=== PATIENT | female | born 1955 | race American Indian/Alaskan Native ===

== ENCOUNTER 2017-10-22 08:31 | Observation (INO) | payer MEDICAID ==
[2017-10-22 09:45] LABS: Basophils # (Auto) 0.1 K/mm3 (0.0-0.1); Eosinophils # (Auto) 0.1 K/mm3 (0.0-0.4); Hematocrit 34.4 % (30.3-42.9); Hemoglobin 10.6 gm/dl (10.1-14.3); Lymphocytes # (Auto) 0.7 K/mm3 (1.2-5.4); Lymphocytes % (Auto) 12.1 % (13.4-35.0); Mean Corpuscular HGB Conc 31 % (30-34); Mean Corpuscular Hemoglobin 27 pg (28-32); Mean Corpuscular Volume 88 fl (79-97); Monocytes # (Auto) 0.4 K/mm3 (0.0-0.8); Monocytes % (Auto) 6.1 % (0.0-7.3); Platelet Count 140 K/mm3 (140-440); Red Blood Count 3.92 M/mm3 (3.65-5.03); Red Cell Distribution Width 18.3 % (13.2-15.2)
--- NOTE | 2017-10-22 09:51 | Emergency Department Report ---
HPI - General Chief Complaint: Hypoglycemia Time Seen by Provider: 10/22/17 09:28 - HPI HPI: Room 18 The patient is a 70-year-old female presenting with a chief complaint of altered mental status/hypoglycemia. Per family the patient was initially unresponsive this morning as family was unable to awaken her. EMS was called when the patient was awake and she could not answer questions appropriately. EMS states the patient was found to be hypoglycemic with an Accu-Chek of 40. EMS administered one amp of D50 and the patient improved. The patient states she takes insulin as well as pills to control her diabetes. The patient states she was recently diagnosed with renal failure and placed on dialysis. The patient states she also was recently diagnosed with pneumonia and is currently on antibiotics but cannot recall the name. 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"s) Hx Diabetes: Yes Hx Renal Disease: Yes Additional medical history: on dialysis - Surgical History Additional Surgical History: Hernia - Family History Family history: no significant - Social History Smoking Status: Never Smoker Substance Use Type: None - Medications Home Medications: Home Medications Medication Instructions Recorded Confirmed Last Taken Type Docusate Sodium 10/22/17 Unknown History Furosemide 10/22/17 Unknown History Gabapentin 10/22/17 Unknown History Humalog Michael Kwikpen 10/22/17 Unknown History ED Review of Systems ROS: Stated complaint: LOW BLOOD SUGAR Other details as noted in HPI Eyes: denies: eye pain ENT: denies: throat pain Respiratory: other (pneumonia) Cardiovascular: denies: chest pain Endocrine: other (hypoglycemia) Gastrointestinal: denies: abdominal pain Genitourinary: denies: dysuria Musculoskeletal: denies: back pain Neurological: confusion Physical Exam - Physical Exam Vital Signs: Vital Signs 10/22/17 10/22/17 08:45 09:02 Pulse Rate 58 L Respiratory 18 Rate Blood Pressure 150/65 O2 Sat by Pulse 92 Oximetry Physical Exam: GENERAL: The patient is well-developed well-nourished female lying on stretcher not appearing to be in acute distress. [] HEENT: Normocephalic. Atraumatic. Extraocular motions are intact. Patient has moist mucous membranes. NECK: Supple. Trachea midline CHEST/LUNGS: Decreased breath sounds left lung. There is no respiratory distress noted. HEART/CARDIOVASCULAR: Regular. There is no tachycardia. There is no gallop rub or murmur. ABDOMEN: Abdomen is soft, nontender. Patient has normal bowel sounds. There is no abdominal distention. SKIN: There is no rash. There is no edema. There is no diaphoresis. NEURO: The patient is awake, alert, and oriented. The patient is cooperative. The patient has normal speech MUSCULOSKELETAL: There is no evidence of acute injury. ED Course Vital Signs 10/22/17 10/22/17 08:45 09:02 Pulse Rate 58 L Respiratory 18 Rate Blood Pressure 150/65 O2 Sat by Pulse 92 Oximetry ED Medical Decision Making - Lab Data Result diagrams: 10/22/17 09:22 10/22/17 09:22 Laboratory Tests 10/22/17 10/22/17 10/22/17 09:22 09:22 09:40 WBC 5.8 RBC 3.92 Hgb 10.6 Hct 34.4 MCV 88 MCH 27 L MCHC 31 RDW 18.3 H Plt Count 140 Lymph % (Auto) 12.1 L [place] % (Auto) 6.1 Eos % (Auto) 1.0 Baso % (Auto) 2.0 H Lymph # 0.7 L [place] # 0.4 Eos # 0.1 Baso # 0.1 Seg Neutrophils % 78.8 H Seg Neutrophils # 4.5 Sodium 139 Potassium 3.7 Chloride 100.7 Carbon Dioxide 25 Anion Gap 17 BUN 25 H Creatinine 2.6 H Estimated GFR 22 BUN/Creatinine Ratio 10 Glucose 108 H POC Glucose 107 H Calcium 10.1 - Radiology Data Radiology results: image reviewed (chest x-ray) interpreted by me: Chest x-ray-left lower lobe consolidation. Possible left pleural effusion - Differential Diagnosis hypoglycemia, pneumonia Critical care attestation.: If time is entered above; I have spent that time in minutes in the direct care of this critically ill patient, excluding procedure time. ED Disposition Clinical Impression: Hypoglycemia, Pneumonia Disposition: OP ADMIT IP TO THIS HOSP Is pt being admited?: Yes Does the pt Need Aspirin: Yes Condition: Fair Instructions: Bacterial Pneumonia (ED) Referrals: PRIMARY CARE, [Primary Care Provider] - 3-5 Days Time of Disposition: 10:22 (hospitalist paged)
[2017-10-22 09:53] LABS: Calcium 10.1 mg/dL (8.4-10.2)
--- NOTE | 2017-10-22 10:05 | XRay Report ---
PORTABLE CHEST INDICATION: Congestion. COMPARISON: None similar at this institution. FINDINGS: Portable, frontal chest radiograph demonstrates extensive left mid to lower lung hazy opacity/infiltrate, most dense towards the base with obscured left hemidiaphragm, representing any combination of atelectasis/consolidation/pleural fluid. Top normal heart size with silhouette partly obscured. Prominent right hilum with perihilar bronchovascular prominence. Mild atelectasis/infiltrate at the right lung base also noted. Right-sided dual-lumen catheter tip about the cavoatrial junction. Aortic knob calcifications. EKG leads. Intact bones. CONCLUSION: Left more than right pulmonary infiltrates/pneumonia, possibly congestive and/or infection. Please also correlate clinically and with prior relevant imaging, if available. Thank you for the opportunity to participate in this patient's care.
--- NOTE | 2017-10-22 10:57 | History and Physical Report ---
History of Present Illness History of present illness: The patient is a 70-year-old female presenting with a chief complaint of altered mental status/hypoglycemia. Her family says she was less responsive and difficult to wake this am. EMS was called and glc was low as 40. EMS gave D50w and she improved. She takes insulins and PO hypoglycemia. She recetnly had PNA and is still on abx at home, doesn't know the name or dose. Denies CP, sob or chills, no cough today - Past Medical History Hx CVA: Yes (90"s), Hx Diabetes: Yes, ESRD recently started on HD, - Surgical History Additional Surgical History: Hernia, AVF - Family History Family history: no significant - Social History denies tobacco, etoh and illicit drugs Medications and Allergies Allergies Allergy/AdvReac Type Severity Reaction Status Date / Time No Known Allergies Allergy Unverified 10/22/17 08:58 Home Medications Medication Instructions Recorded Confirmed Last Taken Type Docusate Sodium 100 mg 10/22/17 Unknown History Furosemide 20 mg 10/22/17 Unknown History Gabapentin 300 mg 10/22/17 Unknown History Humalog Michael Kwikpen 10/22/17 Unknown History Januvia 50 mg 10/22/17 Unknown History Levemir Flextouch 100 units 10/22/17 Unknown History Losartan 50 mg 10/22/17 Unknown History Metoprolol 200 mg 10/22/17 Unknown History Mycophenolate 500 mg PO 10/22/17 Unknown History Omeprazole 40 mg 10/22/17 Unknown History hydrALAZINE 25 mg 10/22/17 Unknown History Review of Systems All systems: negative Constitutional: lethargy (only this am) Ears, nose, mouth and throat: no deferred Breasts: no deferred Cardiovascular: no chest pain Respiratory: no cough Gastrointestinal: no nausea Genitourinary Female: no dyspareunia Menstruation: postmenopausal Rectal: no pain Musculoskeletal: no neck stiffness Integumentary: no deferred Neurological: other (ams x this am, now resolved), no head injury Psychiatric: no anxiety Endocrine: no cold intolerance Hematologic/Lymphatic: no easy bruising Allergic/Immunologic: no urticaria Exam - Constitutional Vitals: Temp Pulse Resp BP Pulse Ox 58 L 18 150/65 92 10/22/17 08:45 10/22/17 09:02 10/22/17 08:45 10/22/17 09:02 General appearance: Present: no acute distress, well-nourished - EENT Eyes: Present: PERRL ENT: hearing intact, clear oral mucosa - Neck Neck: Present: supple, normal ROM - Respiratory Respiratory effort: normal Respiratory: bilateral: CTA - Cardiovascular Heart Sounds: Present: S1 & S2. Absent: rub, click - Extremities Extremities: pulses symmetrical, No edema Peripheral Pulses: within normal limits - Abdominal General gastrointestinal: Present: soft, non-tender, non-distended, normal bowel sounds Female genitourinary: Present: normal - Integumentary Integumentary: Present: clear, warm, dry - Musculoskeletal Musculoskeletal: gait normal, strength equal bilaterally - Psychiatric Psychiatric: appropriate mood/affect, intact judgment & insight - Neurologic Neurologic: CNII-XII intact, moves all extremities Results - Labs CBC & Chem 7: 10/22/17 09:22 10/22/17 09:22 Labs: Laboratory Last Values WBC 5.8 K/mm3 (4.5-11.0) 10/22/17 09:22 RBC 3.92 M/mm3 (3.65-5.03) 10/22/17 09:22 Hgb 10.6 gm/dl (10.1-14.3) 10/22/17 09:22 Hct 34.4 % (30.3-42.9) 10/22/17 09:22 MCV 88 fl (79-97) 10/22/17 09:22 MCH 27 pg (28-32) L 10/22/17 09:22 MCHC 31 % (30-34) 10/22/17 09:22 RDW 18.3 % (13.2-15.2) H 10/22/17 09:22 Plt Count 140 K/mm3 (140-440) 10/22/17 09:22 Lymph % (Auto) 12.1 % (13.4-35.0) L 10/22/17 09:22 [place] % (Auto) 6.1 % (0.0-7.3) 10/22/17 09:22 Eos % (Auto) 1.0 % (0.0-4.3) 10/22/17 09:22 Baso % (Auto) 2.0 % (0.0-1.8) H 10/22/17 09:22 Lymph # 0.7 K/mm3 (1.2-5.4) L 10/22/17 09:22 [place] # 0.4 K/mm3 (0.0-0.8) 10/22/17 09:22 Eos # 0.1 K/mm3 (0.0-0.4) 10/22/17 09:22 Baso # 0.1 K/mm3 (0.0-0.1) 10/22/17 09:22 Seg Neutrophils % 78.8 % (40.0-70.0) H 10/22/17 09:22 Seg Neutrophils # 4.5 K/mm3 (1.8-7.7) 10/22/17 09:22 Sodium 139 mmol/L (137-145) 10/22/17 09:22 Potassium 3.7 mmol/L (3.6-5.0) 10/22/17 09:22 Chloride 100.7 mmol/L (98-107) 10/22/17 09:22 Carbon Dioxide 25 mmol/L (22-30) 10/22/17 09:22 Anion Gap 17 mmol/L 10/22/17 09:22 BUN 25 mg/dL (7-17) H 10/22/17 09:22 Creatinine 2.6 mg/dL (0.7-1.2) H 10/22/17 09:22 Estimated GFR 22 ml/min 10/22/17 09:22 BUN/Creatinine Ratio 10 % 10/22/17 09:22 Glucose 108 mg/dL (65-100) H 10/22/17 09:22 POC Glucose 107 (70-105) H 10/22/17 09:40 Calcium 10.1 mg/dL (8.4-10.2) 10/22/17 09:22 - Imaging and Cardiology Chest x-ray: image reviewed (infiltrate noted) Assessment and Plan Assessment and plan: 70F with esrd who pw hypoglycemia and ams metabolic encephalopathy -due to low glc, improving Hypoglycemia -hold insulins and oral meds, and give ssi PNA -levaquin, renal dose ESRD on HD consult renal htn, resume home meds dvt ppx heparin
[2017-10-22] MEDS ORDERED: ZOFRAN IV PRN (11:09)
[2017-10-22] MEDS ORDERED: SODIUM CHLORIDE FLUSH SYRINGE 10 ML IV PRN (11:09)
[2017-10-22] MEDS ORDERED: TYLENOL PO PRN (11:09)
[2017-10-22] MEDS ORDERED: D50W (25GM) Syringe IV PRN (11:09)
[2017-10-22] MEDS ORDERED: LEVAQUIN PO SCH (12:00)
[2017-10-22] MEDS: LASIX PO SCH (12:28)
[2017-10-22] MEDS: COLACE PO SCH (12:28)
[2017-10-22] MEDS: CELLCEPT PO SCH (12:28)
[2017-10-22] MEDS: COZAAR PO SCH (12:28)
[2017-10-22] MEDS ORDERED: NON-FORMULARY (Hydralazine 25 MG) PO SCH (14:00)
--- NOTE | 2017-10-22 15:00 | Consultation ---
History of Present Illness - Reason for Consult Consult date: 10/22/17 end stage renal disease Requesting physician: NAMRATA WHITE - History of Present Illness 70-year-old lady with history of diabetes mellitus, hypertension, End-stage renal disease who was just discharged from [facility] where she presented with pneumonia and found to be in RENAL FAILURE. PATIENT WAS STARTED ON DIALYSIS THEN. SHE WAS FOLLOWING UP WITH A RAMP ATTENDANT AT [facility] BEFORE THIS. SHE DOES NOT RECALL THE NAME OF HER PRIMARY RAMP ATTENDANT. PATIENT WENT HOME 2 DAYS PRIOR TO PRESENTATION. SHE WAS BROUGHT TO THE HOSPITAL DUE TO ALTERED MENTAL STATUS. SHE WAS FOUND UNRESPONSIVE AND BECAME COMBATIVE THEREAFTER. SHE RECALLS TAKING HUMALOG, LEVEMIR AND HER PILLS the NIGHT BEFORE. Blood SUGAR WAS CHECKED BY EMS AND WAS 40 AND SHE WAS TREATED AND BROUGHT TO THE HOSPITAL FOR FURTHER MANAGEMENT. PATIENT FEELS MUCH BETTER NOW THOUGH SHE ADMITS TO STILL COUGHING PRODUCTIVE OF YELLOW SPUTUM WITH NO HEMOPTYSIS OR WHEEZING. SHE STILL HAS SOME CHEST PAIN ON COUGHING OR DEEP BREATHING WITH SHORTNESS OF BREATH. 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 denies: smoking, alcohol abuse, prescription drug abuse, IV drug use Family history: stroke (father of a stroke in his 60s), other (what I of lung disease in her 50s) Medications and Allergies Allergies Allergy/AdvReac Type Severity Reaction Status Date / Time No Known Allergies Allergy Unverified 10/22/17 08:58 Home Medications Medication Instructions Recorded Confirmed Last Taken Type Docusate Sodium 100 mg 10/22/17 Unknown History Furosemide 20 mg 10/22/17 Unknown History Gabapentin 300 mg 10/22/17 Unknown History Humalog Michael Kwikpen 10/22/17 Unknown History Januvia 50 mg 10/22/17 Unknown History Levemir Flextouch 100 units 10/22/17 Unknown History Losartan 50 mg 10/22/17 Unknown History Metoprolol 200 mg 10/22/17 Unknown History Mycophenolate 500 mg PO 10/22/17 Unknown History Omeprazole 40 mg 10/22/17 Unknown History hydrALAZINE 25 mg 10/22/17 Unknown History Active Meds: Active Medications Acetaminophen (Tylenol) 650 mg PO Q4H PRN PRN Reason: Pain MILD(1-3)/Fever >100.5/[place] Dextrose (D50w (25gm) Syringe) 50 ml IV PRN PRN PRN Reason: Hypoglycemia Docusate Sodium (Colace) 100 mg PO DAILY [facility] Last Admin: 10/22/17 12:28 Dose: 100 mg Furosemide (Lasix) 20 mg PO QAM [facility] Last Admin: 10/22/17 12:28 Dose: 20 mg Gabapentin (Neurontin) 300 mg PO QHS [facility] Heparin Sodium (Porcine) (Heparin) 5,000 unit SUB-Q Q8HR [facility] Hydralazine HCl (Apresoline) 25 mg PO TID [facility] Insulin Human Lispro (Humalog) 0 unit SUB-Q ACHS [facility]; Protocol Levofloxacin (Levaquin) 750 mg PO Q48H [facility] Last Admin: 10/22/17 12:29 Dose: 750 mg Losartan Potassium (Cozaar) 50 mg PO QDAY [facility] Last Admin: 10/22/17 12:28 Dose: 50 mg Metoprolol Tartrate (Lopressor) 50 mg PO BID [facility] Mycophenolate Mofetil (Cellcept) 500 mg PO DAILY [facility] Last Admin: 10/22/17 12:28 Dose: 500 mg Ondansetron HCl (Zofran) 4 mg IV Q8H PRN PRN Reason: Nausea And Vomiting Pantoprazole Sodium (Protonix) 40 mg PO DAILY [facility] Sodium Chloride (Sodium Chloride Flush Syringe 10 Ml) 10 ml IV BID [facility] Sodium Chloride (Sodium Chloride Flush Syringe 10 Ml) 10 ml IV PRN PRN PRN Reason: LINE FLUSH Review of Systems All systems: negative (Constitutional: Admits to fever and chills. No anorexia or weight loss. HEENT: No sore throat or sinus drainage no hearing or vision impairment . Cardiovascular: Admits to chest pain and, shortness of breath. No palpitations, lower extremity swelling or dizziness. Respiratory: Admits to cough productive of clear and yellowish sputum. No hemoptysis or wheezing. Gastrointestinal: No nausea, vomiting, but admits to diarrhea. No abdominal pain, hematemesis or melena. Genitourinary: No frequency urgency dysuria or hematuria. hematologic: No abnormal bleeding or bruising. Integumentary: no pruritus or rash. Neurological: Admits to dizziness and headache no focal weakness or numbness, no syncope or seizures. Musculoskeletal: No joint pains no stiffness. Psychiatry: no anxiety or depression) Exam - Vital Signs Vital signs: Vital Signs Pulse BP 58 L 150/65 10/22/17 08:45 10/22/17 08:45 - Physical Exam Narrative exam: Elderly -Mexican female lying in bed in no acute distress HEENT: NCAT, pink oral mucous membrane Neck: Supple, no venous distention, right IJ permacath CVS: S1S2 RRR with no murmur, rub or gallop Chest: Clear to auscultation Abdomen: Protuberant, soft, nontender, no organomegaly, bowel sounds are present Extremities: mild edema Genitourinary deferred Skin warm and dry with no rash Neuro: Awake, alert no focal deficits Results - Lab Results 10/22/17 09:22 10/22/17 09:22 Most recent lab results Calcium 10.1 mg/dL (8.4-10.2) 10/22/17 09:22 Assessment and Plan - Patient Problems (1) Metabolic encephalopathy Current Visit: Yes Status: Acute Plan to address problem: Mental status has improved with correction of hypoglycemia. Hypoglycemia probably secondary to decreased insulin clearance with worsening kidney function. Need to decrease the dose of hypoglycemic agents. (2) Pneumonia Current Visit: Yes Status: Acute Plan to address problem: Continue antibiotics, bronchodilators as needed (3) End stage renal disease Current Visit: Yes Status: Acute Plan to address problem: Resume hemodialysis in the morning. Request for records from the outside hospital (4) Hypertensive chronic kidney disease with stage 5 chronic kidney disease or end stage renal disease Current Visit: Yes Status: Acute Plan to address problem: Blood pressure is quite labile. Follow blood pressure on current medications (5) Anemia in chronic renal disease Current Visit: Yes Status: Acute Plan to address problem: Give Erythropoetin on dialysis (6) Hypoglycemia Current Visit: Yes Status: Acute Plan to address problem: Decrease hypoglycemic medications and follow blood sugar
[2017-10-22] MEDS ORDERED: HEPARIN IV PRN (15:10)
[2017-10-22] MEDS ORDERED: PROCRIT IV PRN (15:10)
[2017-10-22] MEDS ORDERED: NACL 0.9% 100 ML IV PRN (15:10)
[2017-10-22] MEDS: APRESOLINE PO SCH ×2 (15:37→22:22)
[2017-10-22] MEDS: HEPARIN SUB-Q SCH ×2 (15:39→22:15)
[2017-10-22] MEDS ORDERED: NEURONTIN PO SCH (22:00)
[2017-10-22] MEDS ORDERED: NON-FORMULARY (Metoprolol 50 MG) PO SCH (22:00)
[2017-10-22] MEDS ORDERED: NON-FORMULARY (Gabapentin 300 MG) PO SCH (22:00)
[2017-10-22] MEDS: LOPRESSOR PO SCH ×2 (22:08)
[2017-10-22] MEDS: HumaLOG SUB-Q SCH ×3 (22:23→22:26)
[2017-10-22] MEDS: PROTONIX PO SCH (22:23)
[2017-10-22] MEDS: SODIUM CHLORIDE FLUSH SYRINGE 10 ML IV SCH (22:26)
[2017-10-23] MEDS: HEPARIN SUB-Q SCH ×2 (05:55→14:30)
[2017-10-23 08:48] LABS: Bacteria,Urine 1+ /HPF (Negative); Bilirubin,Urine NEG (Negative); Blood,Urine SM (Negative); Color,Urine Yellow (Yellow); Hyaline Casts,Urine 3 /LPF; Mucus,Urine FEW /HPF; Urobilinogen,Urine < 2.0 mg/dL (<2.0)
[2017-10-23 08:56] LABS: Protein,Urine >500 mg/dL (Negative)
[2017-10-23] MEDS ORDERED: NON-FORMULARY (Mycophenolate 500 MG) PO SCH (10:00)
[2017-10-23] MEDS ORDERED: NON-FORMULARY (Omeprazole 40 MG) PO SCH (10:00)
[2017-10-23] MEDS ORDERED: NON-FORMULARY (Docusate Sodium 100 MG) PO SCH (10:00)
[2017-10-23] MEDS ORDERED: NON-FORMULARY (Losartan 50 MG) PO SCH (10:00)
[2017-10-23] MEDS ORDERED: NON-FORMULARY (Furosemide 20 MG) PO SCH (10:00)
[2017-10-23] MEDS ORDERED: NACL 0.9 (PRIMING MACHINE ONLY DIALYSIS) MC ONE (10:37)
[2017-10-23] MEDS: APRESOLINE PO SCH ×2 (10:52→14:28)
[2017-10-23] MEDS: HumaLOG SUB-Q SCH ×2 (10:52→11:30)
[2017-10-23 12:02] LABS: Calcium 9.1 mg/dL (8.4-10.2)
--- NOTE | 2017-10-23 13:06 | Discharge Summary ---
Providers - Providers Date of Admission: 10/22/17 12:26 Attending physician: NAMRATA WHITE MD 10/22/17 11:14 Consult to Physician [CONS] Routine Comment: Consulting Provider: PANTERA XIE Physician Instructions: Reason For Exam: esrd, need HD Primary care physician: [employer] Hospitalization Condition: Fair Exam - Constitutional Vitals: Temp Pulse Resp BP Pulse Ox 98.2 F 81 18 150/47 91 10/23/17 09:20 10/23/17 10:45 10/23/17 09:20 10/23/17 10:45 10/23/17 08:06 Plan Follow up with: PRIMARY CARE, [Primary Care Provider] - 3-5 Days Prescriptions: hydrALAZINE [Apresoline TAB] 25 mg PO TID #90 tablet Januvia 100 mg PO DAILY #30 MDD 5 mg Levemir Flextouch 5 units SQ DAILY #1 MDD 30 units Levofloxacin [Levaquin TAB] 500 mg PO Q48HR #2 tablet
[2017-10-23 13:29] VITALS: BP 163/92
[2017-10-23] MEDS: CELLCEPT PO SCH (14:27)
[2017-10-23] MEDS: COZAAR PO SCH (14:27)
[2017-10-23] MEDS: LASIX PO SCH (14:27)
[2017-10-23] MEDS: PROTONIX PO SCH (14:28)
[2017-10-23] MEDS: SODIUM CHLORIDE FLUSH SYRINGE 10 ML IV SCH (14:29)
[2017-10-23] MEDS: LOPRESSOR PO SCH (14:29)
[2017-10-23] MEDS: COLACE PO SCH (14:29)
--- NOTE | 2017-10-23 19:19 | Progress Note ---
Assessment and Plan - Patient Problems (1) Metabolic encephalopathy Status: Acute Plan to address problem: Mental status has improved with correction of hypoglycemia. Hypoglycemia probably secondary to decreased insulin clearance with worsening kidney function. Need to decrease the dose of hypoglycemic agents. (2) Pneumonia Status: Acute Plan to address problem: Continue antibiotics, bronchodilators as needed (3) End stage renal disease Status: Acute Plan to address problem: Complete hemodialysis here today and then continue on a Monday and Fridays at the outpatient Dialysis clinic on discharge (4) Hypertensive chronic kidney disease with stage 5 chronic kidney disease or end stage renal disease Status: Acute Plan to address problem: Blood pressure is quite labile. Follow blood pressure on current medications (5) Anemia in chronic renal disease Status: Acute Plan to address problem: Give Erythropoetin on dialysis (6) Hypoglycemia Status: Acute Plan to address problem: Decrease hypoglycemic medications and follow blood sugar per Hospitalist Subjective Date of service: 10/23/17 Principal diagnosis: end-stage renal disease Interval history: Patient seen lying in bed on dialysis. she had no complaints. Tolerating treatment with no complications. Objective - Exam Narrative Exam: Elderly -Mosotho female lying in bed in no acute distress HEENT: NCAT, pink oral mucous membrane Neck: Supple, no venous distention, right IJ permacath CVS: S1S2 RRR with no murmur, rub or gallop Chest: Clear to auscultation Abdomen: Protuberant, soft, nontender, no organomegaly, bowel sounds are present Extremities: mild edema Genitourinary deferred Skin warm and dry with no rash Neuro: Awake, alert no focal deficits - Vital Signs Vital signs: Vital Signs - 12hr 10/23/17 10/23/17 10/23/17 08:06 09:20 09:30 Temperature 98.2 F 98.2 F Pulse Rate 85 84 85 Respiratory 20 18 Rate Blood Pressure 135/64 155/87 171/96 O2 Sat by Pulse 91 Oximetry 10/23/17 10/23/17 10/23/17 09:45 10:00 10:15 Temperature Pulse Rate 83 83 83 Respiratory Rate Blood Pressure 174/95 165/93 148/88 O2 Sat by Pulse Oximetry 10/23/17 10/23/17 10/23/17 10:30 10:45 11:00 Temperature Pulse Rate 81 81 80 Respiratory Rate Blood Pressure 164/88 150/47 148/82 O2 Sat by Pulse Oximetry 06/25/18 06/25/18 06/25/18 11:15 11:30 11:45 Temperature Pulse Rate 78 77 78 Respiratory Rate Blood Pressure 145/84 169/82 152/87 O2 Sat by Pulse Oximetry 10/23/17 10/23/17 10/23/17 12:00 12:20 12:30 Temperature 98.5 F Pulse Rate 77 77 81 Respiratory 18 Rate Blood Pressure 139/83 144/84 163/92 O2 Sat by Pulse Oximetry - Lab 10/22/17 09:22 10/23/17 11:31 Most recent lab results Calcium 9.1 mg/dL (8.4-10.2) 10/23/17 11:31
[2017-10-24] MEDS ORDERED: LEVAQUIN PO SCH (10:00)
[2017-10-25 20:20] LABS: Hepatitis A Antibody IgM Non-Reactive (NonReactive); Hepatitis B Core IgM Non-Reactive (NonReactive); Hepatitis B Surface Antigen Non-Reactive (Negative); Hepatitis C Virus Antibody Non-Reactive (NonReactive)
== END 2017-10-23 16:00 | disposition home or self-care (01) ==
LOC: ED 08:31 → EDBD 12:26 → 3A 12:26
PROVIDERS: ADMIT Internal Medicine; ATTEND Internal Medicine
DX: E11.649 Type 2 diabetes mellitus with hypoglycemia without coma (principal); E11.22 Type 2 diabetes mellitus with diabetic chronic kidney disease; I12.0 Hypertensive chronic kidney disease with stage 5 chronic kidney disease or end stage renal disease; N18.6 End stage renal disease; G93.41 Metabolic encephalopathy; J18.9 Pneumonia, unspecified organism; Z99.2 Dependence on renal dialysis
CPT/HCPCS: 36415; 71045; 80048; 80074; 81001; 82962; 83036; 85025; 87040; 87116; 93005; 93010; 96372; 96374; 99285; G0257; G0378; J0885; J1644; J2405; J7030; J1815; J7517

== ENCOUNTER 2018-07-03 07:34 | Day surgery (SDC) | payer MEDICARE ==
[~2018-07-03 07:34] MED LIST: ANCEF/STERILE WATER 2 GM/20 ML 2 GM/20 ML SYRINGE IV NR; NACL 0.9% 1000 ML 1,000 ML IV SCH
--- NOTE | 2018-07-03 08:33 | Anesthesia Day of Surgery ---
Anesthesia Day of Surgery - Day of Surgery Patient Examined: Yes Patient H&P Reviewed: Yes Patient is NPO: Yes Cardiac Clearance: No (Pt states had heart cath 2w ago and no blockages per pt)
[2018-07-03] MEDS ORDERED: ZOFRAN IV PRN (08:35)
[2018-07-03] MEDS ORDERED: SUBLIMAZE IV PRN (08:35)
--- NOTE | 2018-07-03 08:35 | Anesthesia Consultation ---
Anesthesia Consult and Med Hx Date of service: 07/03/18 - Airway Anesthetic Teeth Evaluation: Good ROM Head & Neck: Adequate Mental/Hyoid Distance: Adequate Mallampati Class: Class II Intubation Access Assessment: Good - Pre-Operative Health Status ASA Pre-Surgery Classification: ASA3 Proposed Anesthetic Plan: General - Cardiovascular System Hx Hypertension: Yes Hx Coronary Artery Disease: No (Neg heart cath 2w ago per pt) - Central Nervous System CVA: Yes ("Mild" In the 90s) - Endocrine Hx Renal Disease: Yes Hx End Stage Renal Disease: Yes (Last HD yesterday) Hx Non-Insulin Dependent Diabetes: Yes - Hematic Hx Anemia: Yes - Other Systems Hx Cancer: No
[2018-07-03] MEDS ORDERED: APRESOLINE PO NR (08:39)
[2018-07-03 08:53] LABS: Basophils # (Auto) 0.1 K/mm3 (0.0-0.1); Basophils % (Auto) 1.4 % (0.0-1.8); Eosinophils # (Auto) 0.1 K/mm3 (0.0-0.4); Eosinophils % (Auto) 1.6 % (0.0-4.3); Hematocrit 36.5 % (30.3-42.9); Lymphocytes # (Auto) 2.3 K/mm3 (1.2-5.4); Lymphocytes % (Auto) 42.3 % (13.4-35.0); Mean Corpuscular HGB Conc 33 % (30-34); Mean Corpuscular Volume 93 fl (79-97); Monocytes # (Auto) 0.4 K/mm3 (0.0-0.8); Monocytes % (Auto) 8.1 % (0.0-7.3); Platelet Count 179 K/mm3 (140-440); Red Blood Count 3.94 M/mm3 (3.65-5.03); Red Cell Distribution Width 19.2 % (13.2-15.2)
[2018-07-03] MEDS ORDERED: NEURONTIN PO NR (09:00)
[2018-07-03] MEDS ORDERED: NACL 0.9% 1000 ML 1,000 ML IV SCH (09:00)
[2018-07-03] MEDS ORDERED: TYLENOL PO NR (09:00)
[2018-07-03 09:22] LABS: Calcium 9.5 mg/dL (8.4-10.2)
[2018-07-03] MEDS ORDERED: PROTONIX PO SCH (09:30)
[2018-07-03] MEDS ORDERED: XYLOCAINE MPF 2% ONE (09:36)
[2018-07-03] MEDS ORDERED: DIPRIVAN 10 MG/ML IV ONE (09:37)
[2018-07-03] MEDS ORDERED: SUBLIMAZE ONE (09:37)
[2018-07-03] MEDS ORDERED: HEPARIN 10,000 UNITS/10 ML ONE (10:19)
[2018-07-03] MEDS ORDERED: MARCAINE-EPI 0.5%-1:200,000 INFILTRATI ONE ×2 (10:19→11:35)
[2018-07-03] MEDS ORDERED: NACL 0.9% 500 ML 500 ML ONE (10:19)
[2018-07-03] MEDS ORDERED: GELFOAM TP ONE ×2 (10:19→11:33)
[2018-07-03] MEDS ORDERED: NITROGLYCERIN SYRINGE 3 ML ONE (10:20)
[2018-07-03] MEDS ORDERED: THROMBIN (BOVINE) TP ONE ×2 (10:59→11:33)
[2018-07-03] MEDS ORDERED: HEPARIN 10,000 UNITS/10 ML IV ONE (11:34)
[2018-07-03] MEDS ORDERED: NACL 0.9% TP ONE (11:37)
[2018-07-03] MEDS ORDERED: NITROGLYCERIN SYRINGE UD ONE (11:39)
[2018-07-03] MEDS ORDERED: NACL 0.9% 500 ML IRRIGATION ONE (11:40)
[2018-07-03] MEDS ORDERED: ZOFRAN ONE ×2 (12:13→13:06)
--- NOTE | 2018-07-03 12:24 | Short Stay Summary ---
Short Stay Documentation Date of service: 07/03/18 - Allergies and Medications Current Medications: Allergies No Known Allergies Allergy (Unverified 10/22/17 08:58) Home Medications Medication Instructions Recorded Confirmed Last Taken Type Furosemide 20 mg PO DAILY MDD 20 mg 10/22/17 07/03/18 07/02/18 19:00 History Gabapentin 100 mg PO BID MDD 400 mg 10/22/17 07/03/18 07/02/18 19:00 History Losartan 50 mg PO DAILY MDD 50 mg 10/22/17 07/03/18 07/02/18 19:00 History Omeprazole 40 mg PO DAILY MDD 40 10/22/17 07/03/18 07/02/18 19:00 History Humalog Michael Kwikpen 0 units SQ TIDAC #5 pen MDD 20 10/23/17 07/03/18 07/02/18 19:00 Rx units Januvia 100 mg PO DAILY #30 MDD 5 mg 10/23/17 07/03/18 07/02/18 19:00 Rx Levemir Flextouch 5 units SQ DAILY #1 MDD 30 units 10/23/17 07/03/18 07/02/18 19:00 Rx RX: hydrALAZINE [Apresoline TAB] 25 mg PO TID #90 tablet 10/23/17 07/03/18 07/02/18 19:00 Rx Mycophenolate 500 mg PO DAILY 07/03/18 07/03/18 07/02/18 19:00 History Active Medications Fentanyl (Sublimaze) 50 mcg IV Q5MIN PRN PRN Reason: Pain , Severe (7-10) Stop: 07/03/18 16:00 Gabapentin (Neurontin) 300 mg PO PREOP NR Stop: 07/03/18 16:00 Last Admin: 07/03/18 09:36 Dose: 300 mg Documented by: Cefazolin Sodium (Ancef/Sterile Water 2 Gm/20 Ml) 2 gm in 20 mls @ 80 mls/hr IV PREOP NR; Protocol Stop: 07/03/18 20:00 Sodium Chloride (Nacl 0.9% 1000 Ml) 1,000 mls @ 42 mls/hr IV DIRECT [place] Last Admin: 07/03/18 09:34 Dose: 42 mls/hr Documented by: Ondansetron HCl (Zofran) 4 mg IV ONCE PRN PRN Reason: Nausea And Vomiting Stop: 07/03/18 13:00 - Brief post op/procedure progress note Date of procedure: 07/03/18 Pre-op diagnosis: ESRD Post-op diagnosis: same Procedure: LUE brachial artery to basilic vein fistula at the elbow Anesthesia: GETA, local Findings: good thrill and 2+ radial pulse at end of case Surgeon: COLTON REYNA Estimated blood loss: minimal Pathology: none Condition: stable - Hospital course Hospital course: benign Short Stay Discharge Plan Activity: advance as tolerated Diet: advance as tolerated Wound: per your surgeon's advice Follow up with: COLTON REYNA MD [Staff Physician] - 14 Days Prescriptions: HYDROcodone/APAP 5-325 [[place] 5/325] 1 each PO Q6HR PRN #20 tablet PRN Reason: Pain
[2018-07-03] MEDS ORDERED: NORMODYNE IV ONE (12:41)
[2018-07-03] MEDS ORDERED: APRESOLINE IV PRN (13:04)
[2018-07-03] MEDS ORDERED: NORCO 5/325 PO ONE (14:30)
[2018-07-03 14:49] VITALS: BP 157/72
--- NOTE | 2018-07-06 15:35 | Operative Report ---
Operative Report Operative Report: KAROLYN Brachial Basilic Fistula Date of procedure: 07/03/2018 Preoperative diagnosis: End-stage renal disease Postoperative diagnosis: Same Procedure: Left upper extremity basilic vein to brachial artery fistula creation at the elbow Surgeon: Samir Glass MD FSVS FACS Anesthesia: General with local supplementation Estimated blood loss: Less than 50 cc Operative indication: Patient has end-stage renal failure and requires long- term hemodialysis access. Operative procedure: The patient was placed on the table in supine position given appropriate anesthesia. The area over the left arm was prepped with a ChloraPrep solution and draped in the usual sterile fashion. Real-time ultrasound was used to identify the superficial veins of the upper extremity. The cephalic vein appeared to be too small in the forearm and upper arm for use. The basilic vein was of excellent caliber in the upper arm and clearly suitable for use as an arterial venous fistula. The location of the vein was marked on the skin using a skin marker. Local anesthesia was infiltrated over the antecubital fossa just inferior to the elbow. Dissection was carried out to identify the basilic vein. The brachial artery was identified in the deeper tissue. The artery was surrounded with Vesseloops proximally distally. The patient was given 2000 units of intravenous heparin. 3 minutes were allowed to pass. An arteriotomy was made in the brachial artery. The arteriotomy length was about 8 mm. The vein was freed up from the surrounding tissue and then divided at a branch point to create a patch. The vein was then anastomosed to the artery in an end-to-side fashion using a running 7-0 Prolene. Nitroglycerin had been used to infiltrate the artery and the vein to prevent spasm. A 2 Zohra catheter was then used to break any spasm around the Vesseloops. All vessels were flushed and vented to remove any air or debris. The anastomosis completed. Flow was started into the fistula the development of an immediate and excellent thrill over the body of the fistula. Meticulous hemostasis was obtained. The wound was infiltrated with half percent Marcaine with epinephrine. Closure was done with 3-0 Vicryl on the subcutaneous tissue. The skin was closed with 4-0 Monocryl. Sterile dressings were applied. The patient tolerated the procedure well. Sponge, needle, and instrument counts were reported as correct. She was taken from the operating room to the recovery room in stable condition with an easily palpable thrill in the arteriovenous fistula and an easily palpable left radial pulse.
== END 2018-07-03 14:40 | disposition home or self-care (01) ==
LOC: OR 07:34
PROVIDERS: ATTEND Surgery Vascular Surgery
DX: I12.0 Hypertensive chronic kidney disease with stage 5 chronic kidney disease or end stage renal disease (principal); E11.22 Type 2 diabetes mellitus with diabetic chronic kidney disease; N18.6 End stage renal disease; E11.649 Type 2 diabetes mellitus with hypoglycemia without coma; G93.41 Metabolic encephalopathy; I25.10 Atherosclerotic heart disease of native coronary artery without angina pectoris; D64.9 Anemia, unspecified; Z79.899 Other long term (current) drug therapy; Z86.73 Personal history of transient ischemic attack (TIA), and cerebral infarction without residual deficits; Z98.890 Other specified postprocedural states
CPT/HCPCS: 36415; 36821; 80048; 82962; 85025; A4649; C1757; J0360; J0690; J1644; J2405; J2704; J3010; J7030; J7040

== ENCOUNTER 2018-07-14 23:29 | Emergency (ER) | payer MEDICARE ==
[2018-07-15 00:38] LABS: Calcium 9.9 mg/dL (8.4-10.2)
[2018-07-15 00:42] LABS: Basophils # (Auto) 0.1 K/mm3 (0.0-0.1); Basophils % (Auto) 1.4 % (0.0-1.8); Eosinophils # (Auto) 0.1 K/mm3 (0.0-0.4); Eosinophils % (Auto) 1.1 % (0.0-4.3); Hematocrit 39.9 % (30.3-42.9); Hemoglobin 12.9 gm/dl (10.1-14.3); Lymphocytes # (Auto) 2.6 K/mm3 (1.2-5.4); Lymphocytes % (Auto) 46.5 % (13.4-35.0); Mean Corpuscular HGB Conc 32 % (30-34); Mean Corpuscular Volume 92 fl (79-97); Monocytes # (Auto) 0.4 K/mm3 (0.0-0.8); Monocytes % (Auto) 7.5 % (0.0-7.3); Platelet Count 227 K/mm3 (140-440); Red Blood Count 4.35 M/mm3 (3.65-5.03); Red Cell Distribution Width 17.2 % (13.2-15.2)
[2018-07-15 01:02] VITALS: BP 210/123
--- NOTE | 2018-07-15 02:07 | Emergency Department Report ---
ED ENT HPI - General Chief complaint: GI Bleed Stated complaint: EMESIS/BLOOD Time Seen by Provider: 07/15/18 00:40 Source: patient Mode of arrival: Wheelchair Limitations: No Limitations - History of Present Illness Initial comments: Chief complaint: "I woke up with a mouthful of blood." HPI: Mrs. Mckinney is a very pleasant 63-year-old female with history of end-stage renal disease on dialysis Monday who awakened with blood in her mouth. She spit up blood counts. After rinsing the bleeding stopped. She has had diffuse toothache with eating. Her teeth have been tender. She is unable to afford dental care. She denies any vomiting. Denies abdominal pain. She's had pain related to intra-abdominal hernia. She was recently evaluated by general surgeon this week. Surgery scheduled for next month. No other concerns. MD complaint: tooth pain, other (gum bleeding) -: Sudden, This evening Severity: mild Consistency: now resolved Improves with: other (rinsing) Context-Epistaxis: aspirin use Context- Dental: history of dental caries, poor dental care Associated Symptoms: toothache - Related Data Home Medications Medication Instructions Recorded Confirmed Last Taken Furosemide 20 mg PO DAILY MDD 20 mg 10/22/17 07/03/18 07/02/18 19:00 Gabapentin 100 mg PO BID MDD 400 mg 10/22/17 07/03/18 07/02/18 19:00 Losartan 50 mg PO DAILY MDD 50 mg 10/22/17 07/03/18 07/02/18 19:00 Omeprazole 40 mg PO DAILY MDD 40 10/22/17 07/03/18 07/02/18 19:00 Mycophenolate 500 mg PO DAILY 07/03/18 07/03/18 07/02/18 19:00 Previous Rx's Medication Instructions Recorded Last Taken Type Humalog Michael Kwikpen 0 units SQ TIDAC #5 pen MDD 20 10/23/17 07/02/18 19:00 Rx units Januvia 100 mg PO DAILY #30 MDD 5 mg 10/23/17 07/02/18 19:00 Rx Levemir Flextouch 5 units SQ DAILY #1 MDD 30 units 10/23/17 07/02/18 19:00 Rx hydrALAZINE [Apresoline TAB] 25 mg PO TID #90 tablet 10/23/17 07/02/18 19:00 Rx HYDROcodone/APAP 5-325 [Hyampom 1 each PO Q6HR PRN #20 tablet 07/03/18 Unknown Rx 5/325] Penicillin V Potassium 500 mg PO TID 7 Days #21 tablet 07/15/18 Unknown Rx Allergies Allergy/AdvReac Type Severity Reaction Status Date / Time No Known Allergies Allergy Unverified 10/22/17 08:58 ED Dental HPI - General Chief complaint: GI Bleed Stated complaint: EMESIS/BLOOD Time Seen by Provider: 07/15/18 00:40 Source: patient Mode of arrival: Wheelchair Limitations: No Limitations - Related Data Home Medications Medication Instructions Recorded Confirmed Last Taken Furosemide 20 mg PO DAILY MDD 20 mg 10/22/17 07/03/18 07/02/18 19:00 Gabapentin 100 mg PO BID MDD 400 mg 10/22/17 07/03/18 07/02/18 19:00 Losartan 50 mg PO DAILY MDD 50 mg 10/22/17 07/03/18 07/02/18 19:00 Omeprazole 40 mg PO DAILY MDD 40 10/22/17 07/03/18 07/02/18 19:00 Mycophenolate 500 mg PO DAILY 07/03/18 07/03/18 07/02/18 19:00 Previous Rx's Medication Instructions Recorded Last Taken Type Humalog Michael Kwikpen 0 units SQ TIDAC #5 pen MDD 20 10/23/17 07/02/18 19:00 Rx units Januvia 100 mg PO DAILY #30 MDD 5 mg 10/23/17 07/02/18 19:00 Rx Levemir Flextouch 5 units SQ DAILY #1 MDD 30 units 10/23/17 07/02/18 19:00 Rx hydrALAZINE [Apresoline TAB] 25 mg PO TID #90 tablet 10/23/17 07/02/18 19:00 Rx HYDROcodone/APAP 5-325 [Hyampom 1 each PO Q6HR PRN #20 tablet 07/03/18 Unknown Rx 5/325] Penicillin V Potassium 500 mg PO TID 7 Days #21 tablet 07/15/18 Unknown Rx Allergies Allergy/AdvReac Type Severity Reaction Status Date / Time No Known Allergies Allergy Unverified 10/22/17 08:58 ED Review of Systems ROS: Stated complaint: EMESIS/BLOOD Other details as noted in HPI Comment: All other systems reviewed and negative Constitutional: denies: fever, malaise Respiratory: denies: cough Gastrointestinal: abdominal pain. 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) Hx Diabetes: Yes Hx Renal Disease: Yes Additional medical history: on dialysis, ANEMIA - Surgical History Past Surgical History?: Yes Additional Surgical History: Hernia, Left arm AV fistula - Social History Smoking Status: Never Smoker Substance Use Type: None - Medications Home Medications: Home Medications Medication Instructions Recorded Confirmed Last Taken Type Furosemide 20 mg PO DAILY MDD 20 mg 10/22/17 07/03/18 07/02/18 19:00 History Gabapentin 100 mg PO BID MDD 400 mg 10/22/17 07/03/18 07/02/18 19:00 History Losartan 50 mg PO DAILY MDD 50 mg 10/22/17 07/03/18 07/02/18 19:00 History Omeprazole 40 mg PO DAILY MDD 40 10/22/17 07/03/18 07/02/18 19:00 History Humalog Michael Kwikpen 0 units SQ TIDAC #5 pen MDD 20 10/23/17 07/03/18 07/02/18 19:00 Rx units Januvia 100 mg PO DAILY #30 MDD 5 mg 10/23/17 07/03/18 07/02/18 19:00 Rx Levemir Flextouch 5 units SQ DAILY #1 MDD 30 units 10/23/17 07/03/18 07/02/18 19:00 Rx hydrALAZINE [Apresoline TAB] 25 mg PO TID #90 tablet 10/23/17 07/03/18 07/02/18 19:00 Rx HYDROcodone/APAP 5-325 [Hyampom 1 each PO Q6HR PRN #20 tablet 07/03/18 Unknown Rx 5/325] Mycophenolate 500 mg PO DAILY 07/03/18 07/03/18 07/02/18 19:00 History Penicillin V Potassium 500 mg PO TID 7 Days #21 tablet 07/15/18 Unknown Rx ED Physical Exam - General Limitations: No Limitations General appearance: alert, in no apparent distress - Head Head exam: Present: atraumatic, normocephalic - Eye Eye exam: Present: normal appearance - ENT ENT exam: Present: other (diffuse dental decay with tooth fracture at tooth #25 there is decay at the gum line with clotted blood) - Neck Neck exam: Present: normal inspection - Respiratory Respiratory exam: Present: normal lung sounds bilaterally. Absent: respiratory distress - Cardiovascular Cardiovascular Exam: Present: regular rate, normal rhythm. Absent: systolic murmur, diastolic murmur, rubs, gallop - GI/Abdominal GI/Abdominal exam: Present: soft, normal bowel sounds. Absent: distended, tenderness, guarding, rebound - Extremities Exam Extremities exam: Present: normal inspection - Back Exam Back exam: Present: normal inspection - Neurological Exam Neurological exam: Present: alert, oriented X3 - Psychiatric Psychiatric exam: Present: normal affect, normal mood - Skin Skin exam: Present: warm, dry, intact, normal color. Absent: rash ED Course Vital Signs 07/14/18 07/15/18 23:36 01:02 Temperature 97.9 F Pulse Rate 103 H 102 H Respiratory 18 15 Rate Blood Pressure 215/115 Blood Pressure 210/123 [Left] O2 Sat by Pulse 99 98 Oximetry ED Medical Decision Making - Lab Data Result diagrams: 07/15/18 00:03 07/15/18 00:03 - Medical Decision Making Ms. Spain presents with gum bleeding due to severe gingivitis and tooth decay prescribed penicillin. Referred to [facility] dental clinics. Recommended direct pressure with gauze if bleeding recurs. Currently there is a clot in place without active bleeding. I discharged her to hold aspirin therapy for the next 3 days. H&H within normal limits. Platelets are normal. Critical care attestation.: If time is entered above; I have spent that time in minutes in the direct care of this critically ill patient, excluding procedure time. ED Disposition Clinical Impression: Gums, bleeding, Dental caries Disposition: DC-01 TO HOME OR SELFCARE Is pt being admited?: No Does the pt Need Aspirin: No Condition: Stable Instructions: Gingivitis (ED) Prescriptions: Penicillin V Potassium 500 mg PO TID 7 Days #21 tablet Referrals: [facility] [Outside] - 3-5 Days
== END 2018-07-15 03:20 | disposition home or self-care (01) ==
LOC: ED 23:29
DX: K02.9 Dental caries, unspecified (principal); K06.8 Other specified disorders of gingiva and edentulous alveolar ridge; E11.22 Type 2 diabetes mellitus with diabetic chronic kidney disease; I13.11 Hypertensive heart and chronic kidney disease without heart failure, with stage 5 chronic kidney disease, or end stage renal disease; N18.6 End stage renal disease; Z99.2 Dependence on renal dialysis; Z86.73 Personal history of transient ischemic attack (TIA), and cerebral infarction without residual deficits; Z79.899 Other long term (current) drug therapy; Z86.2 Personal history of diseases of the blood and blood-forming organs and certain disorders involving the immune mechanism
CPT/HCPCS: 36415; 80048; 85025; 99283

== ENCOUNTER 2021-04-02 11:08 | Observation (INO) | payer MEDICARE ==
--- NOTE | 2021-04-02 12:39 | Emergency Department Report ---
HPI - General Chief Complaint: Dyspnea/Respdistress Time Seen by Provider: 04/02/21 12:35 - HPI HPI: 65-year-old -Mal[place] female presents to the emergency department with complaint of shortness of breath over the past 2 days. Patient is not compl etely O2 dependent, but has been using oxygen at home intermittently since getting bilateral pneumonia earlier this year and being seen at [facility]. However, over the past 2 days, since Monday, the patient has been having to use the oxygen 24 hours a day. She has increased shortness of breath with any exertion. The patient went to dialysis today but had her oxygen saturation dropped down into the 70s as they were transferring her between different supplemental oxygen. Once the oxygen was placed back on, at 3 L, her oxygen saturation continued to rise and the patient says that she feels improved "as long as I am on the oxygen." However, because of this transient hypoxia, the patient did not receive dialysis and was sent into the emergency department for further evaluation. She denies any chest pain, fever, lower extremity swelling, back pain. Her bottom man is Dr. Comer. The patient is vaccinated against COVID-19. She also has a history of hypertension and diabetes. ED Past Medical Hx 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) Hx Diabetes: Yes Hx Renal Disease: Yes Additional medical history: on dialysis, ANEMIA - Surgical History Additional Surgical History: Hernia, Left arm AV fistula - Social History Smoking Status: Never Smoker Substance Use Type: None - Medications Home Medications: Home Medications Medication Instructions Recorded Confirmed Last Taken Type Furosemide 20 mg PO DAILY MDD 20 mg 10/22/17 07/03/18 07/02/18 19:00 History Gabapentin 100 mg PO BID MDD 400 mg 10/22/17 07/03/18 07/02/18 19:00 History Losartan 50 mg PO DAILY MDD 50 mg 10/22/17 07/03/18 07/02/18 19:00 History Omeprazole 40 mg PO DAILY MDD 40 10/22/17 07/03/18 07/02/18 19:00 History Humalog Michael Kwikpen 0 units SQ TIDAC #5 pen MDD 20 10/23/17 07/03/18 07/02/18 19:00 Rx units Januvia 100 mg PO DAILY #30 MDD 5 mg 10/23/17 07/03/18 07/02/18 19:00 Rx Levemir Flextouch 5 units SQ DAILY #1 MDD 30 units 10/23/17 07/03/18 07/02/18 19:00 Rx hydrALAZINE [Apresoline TAB] 25 mg PO TID #90 tablet 10/23/17 07/03/18 07/02/18 19:00 Rx HYDROcodone/APAP 5-325 [Liberal 1 each PO Q6HR PRN #20 tablet 07/03/18 Unknown Rx 5-325 mg TAB] Mycophenolate 500 mg PO DAILY 07/03/18 07/03/18 07/02/18 19:00 History Penicillin V Potassium 500 mg PO TID 7 Days #21 tablet 07/15/18 Unknown Rx ED Review of Systems ROS: Stated complaint: Other details as noted in HPI Comment: All other systems reviewed and negative Constitutional: denies: chills, fever Eyes: denies: eye pain, vision change ENT: denies: ear pain, throat pain Respiratory: shortness of breath, SOB with exertion Cardiovascular: denies: chest pain, edema Gastrointestinal: denies: abdominal pain, vomiting Genitourinary: denies: dysuria, discharge Musculoskeletal: denies: back pain, arthralgia Skin: denies: rash, lesions Neurological: denies: headache, weakness Physical Exam - Physical Exam Vital Signs: Vital Signs 04/02/21 11:22 Temperature 98.5 F Pulse Rate 95 H Respiratory 18 Rate Blood Pressure 189/90 [Left] O2 Sat by Pulse 99 Oximetry Physical Exam: GENERAL: The patient is well-developed well-nourished. HENT: Normocephalic. Atraumatic. Patient has moist mucous membranes. EYES: Extraocular motions are intact. NECK: Supple. Trachea is midline. CHEST/LUNGS: Coarse breath sounds throughout the chest. No tachypnea accessory muscle use. HEART/CARDIOVASCULAR: Regular. There is no tachycardia. There is no murmur. ABDOMEN: Abdomen is soft, nontender. Patient has normal bowel sounds. SKIN: Skin is warm and dry. NEURO: The patient is awake, alert, and oriented. The patient is cooperative. The patient has no focal neurologic deficits. Normal speech. MUSCULOSKELETAL: There is no tenderness or deformity. There is no limitation range of motion. ED Course Vital Signs 12/03/21 11:22 Temperature 98.5 F Pulse Rate 95 H Respiratory 18 Rate Blood Pressure 189/90 [Left] O2 Sat by Pulse 99 Oximetry - Consultations Consultation #1: 04/02/21 14:[address] Browning, bottom man on for Dr. Comer, and he will provide orders for dialysis today and consult on the patient. ED Medical Decision Making - Lab Data Result diagrams: 04/02/21 12:44 04/02/21 12:44 Lab Results 04/02/21 04/02/21 Range/Units 12:44 12:44 WBC 5.4 (4.5-11.0) K/mm3 RBC 3.62 L (3.65-5.03) M/mm3 Hgb 10.7 (10.1-14.3) gm/dl Hct 34.5 (30.3-42.9) % MCV 95 (79-97) fl MCH 30 (28-32) pg MCHC 31 (30-34) % RDW 17.0 H (13.2-15.2) % Plt Count 208 (140-440) K/mm3 Lymph % (Auto) 15.7 (13.4-35.0) % [place] % (Auto) 6.0 (0.0-7.3) % Eos % (Auto) 4.1 (0.0-4.3) % Baso % (Auto) 1.3 (0.0-1.8) % Lymph # (Auto) 0.8 L (1.2-5.4) K/mm3 [place] # (Auto) 0.3 (0.0-0.8) K/mm3 Eos # (Auto) 0.2 (0.0-0.4) K/mm3 Baso # (Auto) 0.1 (0.0-0.1) K/mm3 Seg Neutrophils % 72.9 H (40.0-70.0) % Seg Neutrophils # 3.9 (1.8-7.7) K/mm3 Sodium 141 (137-145) mmol/L Potassium 4.6 (3.6-5.0) mmol/L Chloride 98.5 (98-107) mmol/L Carbon Dioxide 24 (22-30) mmol/L Anion Gap 23 mmol/L BUN 31 H (7-17) mg/dL Creatinine 7.9 H (0.6-1.2) mg/dL Estimated GFR 6 ml/min BUN/Creatinine Ratio 4 % Glucose 104 H (65-100) mg/dL Calcium 9.2 (8.4-10.2) mg/dL Total Bilirubin 0.40 (0.1-1.2) mg/dL AST 19 (5-40) units/L ALT 14 (7-56) units/L Alkaline Phosphatase 125 (35-129) units/L NT-Pro-B Natriuret Pep 79985 H (0-900) pg/mL Total Protein 7.5 (6.3-8.2) g/dL Albumin 3.9 (3.9-5) g/dL Albumin/Globulin Ratio 1.1 % - Radiology Data Radiology results: image reviewed interpreted by me: Chest x-ray shows pulmonary vascular congestion, bilateral interstitial edema, and some mild bilateral pleural effusions. No obvious pneumonia. No pneumothorax. No widened mediastinum. - Medical Decision Making This patient presents to the emergency department with a complaint of some shortness of breath and missing her dialysis. The patient had some transient hypoxia during a transfer or in between being able to use supplemental oxygen. However, the patient has had to use her home O2 [id number] over the past 2 days, when usually she only has to use it intermittently. In our emergency department the patient has a oxygen saturation in the high 90s on 3 L oxygen via nasal cannula. Chest x-ray does show volume overload. The patient's labs are only remarkable for renal insufficiency consistent with her end-stage renal disease. Nephrology was contacted and consulted and they will provide dialysis today. The patient will be admitted to the hospital for further evaluation and treatment and was accepted for admission by the hospitalist, Dr. Akhtar. Critical Care Time: No Critical care attestation.: If time is entered above; I have spent that time in minutes in the direct care of this critically ill patient, excluding procedure time. ED Disposition Clinical Impression: End-stage renal disease needing dialysis Volume overload Qualifiers: Hypervolemia type: unspecified Qualified Code(s): E87.70 - Fluid overload, unspecified Hypertension Qualifiers: Hypertension type: primary hypertension Qualified Code(s): I10 - Essential (primary) hypertension Disposition: 09 ADMITTED INPATIENT Is pt being admited?: Yes Condition: Fair Time of Disposition: 14:51
--- NOTE | 2021-04-02 13:30 | XRay Report ---
CHEST 2 VIEWS INDICATION / CLINICAL INFORMATION: Shortness of breath. COMPARISON: 10/22/2017 FINDINGS: SUPPORT DEVICES: None. HEART / MEDIASTINUM: There is moderate cardiomegaly. LUNGS / PLEURA: There is interstitial pulmonary edema and small bilateral effusions. ADDITIONAL FINDINGS: No significant additional findings. IMPRESSION: 1. Findings likely indicating CHF as above. Signer Name: Carlton Batista MD Signed: 04/02/2021 1:25 PM Workstation Name: [id number]
[2021-04-02 13:44] LABS: Basophils # (Auto) 0.1 K/mm3 (0.0-0.1); Basophils % (Auto) 1.3 % (0.0-1.8); Eosinophils # (Auto) 0.2 K/mm3 (0.0-0.4); Eosinophils % (Auto) 4.1 % (0.0-4.3); Hematocrit 34.5 % (30.3-42.9); Hemoglobin 10.7 gm/dl (10.1-14.3); Lymphocytes # (Auto) 0.8 K/mm3 (1.2-5.4); Lymphocytes % (Auto) 15.7 % (13.4-35.0); Mean Corpuscular HGB Conc 31 % (30-34); Mean Corpuscular Volume 95 fl (79-97); Monocytes # (Auto) 0.3 K/mm3 (0.0-0.8); Platelet Count 208 K/mm3 (140-440); Red Blood Count 3.62 M/mm3 (3.65-5.03)
[2021-04-02 14:03] LABS: Albumin 3.9 g/dL (3.9-5); Calcium 9.2 mg/dL (8.4-10.2)
[2021-04-02] MEDS ORDERED: SODIUM CHLORIDE 0.9% 100 ML IV PRN (15:00)
[2021-04-02 16:21] LABS: Hepatitis C Virus Antibody Non-Reactive (NonReactive)
[2021-04-02 16:29] LABS: Hepatitis B Surface Antigen Nonreactive (Negative)
--- NOTE | 2021-04-02 20:00 | History and Physical Report ---
History of Present Illness Date of examination: 04/02/21 Date of admission: 04/02/21 14:51 Chief complaint: Shortness of breath for 1 day History of present illness: 65-year-old -L[place] female presents to the emergency department with complaint of shortness of breath over the past 2 days. Patient is not completely O2 dependent, but has been using oxygen at home intermittently since getting bilateral pneumonia earlier this year and being seen at [facility]. However, over the past 2 days, since Monday, the patient has been having to use the oxygen 24 hours a day. She has increased shortness of breath with any exertion. The patient went to dialysis today but had her oxygen saturation dropped down into the 70s as they were transferring her between different supplemental oxygen. Once the oxygen was placed back on, at 3 L, her oxygen saturation continued to rise and the patient says that she feels improved "as long as I am on the oxygen." However, because of this transient hypoxia, the patient did not receive dialysis and was sent into the emergency department for further evaluation. She denies any chest pain, fever, lower extremity swelling, back pain. 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 Comer. The patient is vaccinated against COVID-19. She also has a history of hypertension and diabetes. 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) Hx Diabetes: Yes Hx Renal Disease: Yes Additional medical history: on dialysis, ANEMIA - Surgical History Additional Surgical History: Hernia, Left arm AV fistula - Social History Smoking Status: Never Smoker Substance Use Type: None - Medications Home Medications: Home Medications Medication Instructions Recorded Confirmed Last Taken Type Furosemide 20 mg PO DAILY MDD 20 mg 10/22/17 07/03/18 07/02/18 19:00 History Gabapentin 100 mg PO BID MDD 400 mg 10/22/17 07/03/18 07/02/18 19:00 History Losartan 50 mg PO DAILY MDD 50 mg 10/22/17 07/03/18 07/02/18 19:00 History Omeprazole 40 mg PO DAILY MDD 40 10/22/17 07/03/18 07/02/18 19:00 History Humalog Michael Kwikpen 0 units SQ TIDAC #5 pen MDD 20 10/23/17 07/03/18 07/02/18 19:00 Rx units Januvia 100 mg PO DAILY #30 MDD 5 mg 10/23/17 07/03/18 07/02/18 19:00 Rx Levemir Flextouch 5 units SQ DAILY #1 MDD 30 units 10/23/17 07/03/18 07/02/18 19:00 Rx hydrALAZINE [Apresoline TAB] 25 mg PO TID #90 tablet 10/23/17 07/03/18 07/02/18 19:00 Rx HYDROcodone/APAP 5-325 [[place] 1 each PO Q6HR PRN #20 tablet 07/03/18 Unknown Rx 5/325] Mycophenolate 500 mg PO DAILY 07/03/18 07/03/18 07/02/18 19:00 History Penicillin V Potassium 500 mg PO TID 7 Days #21 tablet 07/15/18 Unknown Rx Review of Systems ROS: Stated complaint: Other details as noted in HPI Comment: All other systems reviewed and negative Constitutional: denies: chills, fever Eyes: denies: eye pain, vision change ENT: denies: ear pain, throat pain Respiratory: shortness of breath, SOB with exertion Cardiovascular: denies: chest pain, edema Gastrointestinal: denies: abdominal pain, vomiting Genitourinary: denies: dysuria, discharge Musculoskeletal: denies: back pain, arthralgia Skin: denies: rash, lesions Neurological: denies: headache, weakness Medications and Allergies Allergies Allergy/AdvReac Type Severity Reaction Status Date / Time No Known Allergies Allergy Unverified 04/02/21 11:31 Home Medications Medication Instructions Recorded Confirmed Last Taken Type Furosemide 20 mg PO DAILY MDD 20 mg 10/22/17 07/03/18 07/02/18 19:00 History Gabapentin 100 mg PO BID MDD 400 mg 10/22/17 07/03/18 07/02/18 19:00 History Losartan 50 mg PO DAILY MDD 50 mg 10/22/17 07/03/18 07/02/18 19:00 History Omeprazole 40 mg PO DAILY MDD 40 10/22/17 07/03/18 07/02/18 19:00 History Humalog Michael Kwikpen 0 units SQ TIDAC #5 pen MDD 20 10/23/17 07/03/18 07/02/18 19:00 Rx units Januvia 100 mg PO DAILY #30 MDD 5 mg 10/23/17 07/03/18 07/02/18 19:00 Rx Levemir Flextouch 5 units SQ DAILY #1 MDD 30 units 10/23/17 07/03/18 07/02/18 19:00 Rx hydrALAZINE [Apresoline TAB] 25 mg PO TID #90 tablet 10/23/17 07/03/18 07/02/18 19:00 Rx HYDROcodone/APAP 5-325 [[place] 1 each PO Q6HR PRN #20 tablet 07/03/18 Unknown Rx 5-325 mg TAB] Mycophenolate 500 mg PO DAILY 07/03/18 07/03/18 07/02/18 19:00 History Penicillin V Potassium 500 mg PO TID 7 Days #21 tablet 07/15/18 Unknown Rx Active Meds: Active Medications Sodium Chloride (Nacl 0.9%) 100 mls @ 999 mls/hr IV VEENA PRN PRN Reason: Hypotension Exam - Constitutional Vitals: Temp Pulse Resp BP Pulse Ox 98.8 F 93 H 18 187/118 96 04/02/21 15:50 04/02/21 15:50 04/02/21 15:50 04/02/21 15:50 04/02/21 15:50 General appearance: Present: no acute distress, well-nourished - EENT Eyes: Present: PERRL ENT: hearing intact, clear oral mucosa - Neck Neck: Present: supple, normal ROM - Respiratory Respiratory effort: normal Respiratory: bilateral: CTA - Cardiovascular Heart rate: 78 Rhythm: regular Heart Sounds: Present: S1 & S2. Absent: rub, click - Extremities Extremities: no ischemia, pulses intact, pulses symmetrical, No edema Peripheral Pulses: within normal limits - Abdominal General gastrointestinal: Present: soft, non-tender, non-distended, normal bowel sounds Female genitourinary: Present: normal - Rectal Rectal Exam: deferred - Integumentary Integumentary: Present: clear, warm, dry - Musculoskeletal Musculoskeletal: gait normal, strength equal bilaterally - Psychiatric Psychiatric: appropriate mood/affect, intact judgment & insight - Neurologic Neurologic: CNII-XII intact, moves all extremities Results - Labs CBC & Chem 7: 04/02/21 12:44 04/02/21 12:44 Labs: Laboratory Last Values WBC 5.4 K/mm3 (4.5-11.0) 04/02/21 12:44 RBC 3.62 M/mm3 (3.65-5.03) L 04/02/21 12:44 Hgb 10.7 gm/dl (10.1-14.3) 04/02/21 12:44 Hct 34.5 % (30.3-42.9) 04/02/21 12:44 MCV 95 fl (79-97) 04/02/21 12:44 MCH 30 pg (28-32) 04/02/21 12:44 MCHC 31 % (30-34) 04/02/21 12:44 RDW 17.0 % (13.2-15.2) H 04/02/21 12:44 Plt Count 208 K/mm3 (140-440) 04/02/21 12:44 Lymph % (Auto) 15.7 % (13.4-35.0) 04/02/21 12:44 [place] % (Auto) 6.0 % (0.0-7.3) 04/02/21 12:44 Eos % (Auto) 4.1 % (0.0-4.3) 04/02/21 12:44 Baso % (Auto) 1.3 % (0.0-1.8) 04/02/21 12:44 Lymph # (Auto) 0.8 K/mm3 (1.2-5.4) L 04/02/21 12:44 [place] # (Auto) 0.3 K/mm3 (0.0-0.8) 04/02/21 12:44 Eos # (Auto) 0.2 K/mm3 (0.0-0.4) 04/02/21 12:44 Baso # (Auto) 0.1 K/mm3 (0.0-0.1) 04/02/21 12:44 Seg Neutrophils % 72.9 % (40.0-70.0) H 04/02/21 12:44 Seg Neutrophils # 3.9 K/mm3 (1.8-7.7) 04/02/21 12:44 Sodium 141 mmol/L (137-145) 04/02/21 12:44 Potassium 4.6 mmol/L (3.6-5.0) 04/02/21 12:44 Chloride 98.5 mmol/L (98-107) 04/02/21 12:44 Carbon Dioxide 24 mmol/L (22-30) 04/02/21 12:44 Anion Gap 23 mmol/L 04/02/21 12:44 BUN 31 mg/dL (7-17) H 04/02/21 12:44 Creatinine 7.9 mg/dL (0.6-1.2) H 04/02/21 12:44 Estimated GFR 6 ml/min 04/02/21 12:44 BUN/Creatinine Ratio 4 % 04/02/21 12:44 Glucose 104 mg/dL (65-100) H 04/02/21 12:44 Calcium 9.2 mg/dL (8.4-10.2) 04/02/21 12:44 Total Bilirubin 0.40 mg/dL (0.1-1.2) 04/02/21 12:44 AST 19 units/L (5-40) 04/02/21 12:44 ALT 14 units/L (7-56) 04/02/21 12:44 Alkaline Phosphatase 125 units/L (35-129) 04/02/21 12:44 NT-Pro-B Natriuret Pep 49544 pg/mL (0-900) H 04/02/21 12:44 Total Protein 7.5 g/dL (6.3-8.2) 04/02/21 12:44 Albumin 3.9 g/dL (3.9-5) 04/02/21 12:44 Albumin/Globulin Ratio 1.1 % 04/02/21 12:44 Hepatitis A IgM Ab Non-reactive (NonReactive) 04/02/21 15:19 Hep Bs Antigen Nonreactive (Negative) 04/02/21 15:19 Hep B Core IgM Ab Non-reactive (NonReactive) 04/02/21 15:19 Hepatitis C Antibody Non-reactive (NonReactive) 04/02/21 15:19 Assessment and Plan Advance Directives: Yes (Full code) VTE prophylaxis?: Chemical Plan of care discussed with patient/family: Yes - Patient Problems (1) Acute respiratory failure with hypoxia Current Visit: Yes Status: Acute Plan to address problem: Patient on oxygen at 3 L Patient is on home oxygen but requiring more oxygen presently for the last 3 to 4 days (2) End-stage renal disease needing dialysis Current Visit: Yes Status: Acute Plan to address problem: Emergent hemodialysis (3) Hypertension Current Visit: Yes Status: Chronic Qualifiers: Hypertension type: primary hypertension Qualified Code(s): I10 - Essential (primary) hypertension Plan to address problem: Continue antihypertensives (4) Volume overload Current Visit: Yes Status: Acute Plan to address problem: Increase ultrafiltration to remove increased volume to decrease oxygen requirem ents (5) DVT prophylaxis Current Visit: Yes Status: Acute Plan to address problem: On heparin and GI prophylaxis
--- NOTE | 2021-04-02 20:00 | Discharge Summary ---
Providers - Providers Date of Admission: 04/02/21 14:51 Date of discharge: 04/02/21 Attending physician: CALEB MORENO 04/02/21 14:48 Consult to Physician [CONS] Routine Comment: Consulting Provider: HENRY DENG Physician Instructions: Reason For Exam: ESRD needing dialysis Primary care physician: MUD GRINDER Hospitalization Condition: Fair Hospital course: 65-year-old -Martiniquais female presents to the emergency department with complaint of shortness of breath over the past 2 days. Patient is not completely O2 dependent, but has been using oxygen at home intermittently since getting bilateral pneumonia earlier this year and being seen at [facility]. However, over the past 2 days, since Monday, the patient has been having to use the oxygen 24 hours a day. She has increased shortness of breath with any exertion. The patient went to dialysis today but had her oxygen saturation dropped down into the 70s as they were transferring her between different supplemental oxygen. Once the oxygen was placed back on, at 3 L, her oxygen saturation continued to rise and the patient says that she feels improved "as long as I am on the oxygen." However, because of this transient hypoxia, the patient did not receive dialysis and was sent into the emergency department for further evaluation. She denies any chest pain, fever, lower extremity swelling, back pain. 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 Comer. The patient is vaccinated against COVID-19. She also has a history of hypertension and diabetes. Assessment and Plan Advance Directives: Yes (Full code) VTE prophylaxis?: Chemical Plan of care discussed with patient/family: Yes - Patient Problems (1) Acute respiratory failure with hypoxia Current Visit: Yes Status: Acute Plan to address problem: Patient does not need any oxygen at this time because of removal of volume and fluid overload being resolved (2) End-stage renal disease needing dialysis Current Visit: Yes Status: Acute Plan to address problem: Emergent hemodialysis done and volume removed Patient feels not better Patient does not need any oxygen (3) Hypertension Current Visit: Yes Status: Chronic Qualifiers: Hypertension type: primary hypertension Qualified Code(s): I10 - Essential (primary) hypertension Plan to address problem: Continue antihypertensives (4) Volume overload Current Visit: Yes Status: Acute Plan to address problem: Increase ultrafiltration to remove increased volume to decrease oxygen requirements (5) DVT prophylaxis Current Visit: Yes Status: Acute Plan to address problem: On heparin and GI prophylaxis Disposition: HOME / SELF CARE / HOMELESS Final Discharge Diagnosis (Prints w/discharge instructions): Acute respiratory failure with hypoxia. End-stage renal disease needing hemodialysis. Hypertension. Volume overload Time spent for discharge: 32 minutes - Discharge Diagnoses (1) Acute respiratory failure with hypoxia Status: Acute (2) End-stage renal disease needing dialysis Status: Acute (3) Hypertension Status: Chronic Qualifiers: Hypertension type: primary hypertension Qualified Code(s): I10 - Essential (primary) hypertension (4) Volume overload Status: Acute (5) DVT prophylaxis Status: Acute Core Measure Documentation - Palliative Care Palliative Care/ Comfort Measures: Not Applicable - Core Measures Any of the following diagnoses?: none Exam - Constitutional Vitals: Temp Pulse Resp BP Pulse Ox 98.8 F 93 H 18 187/118 96 04/02/21 15:50 04/02/21 15:50 04/02/21 15:50 04/02/21 15:50 04/02/21 15:50 General appearance: Present: no acute distress, well-nourished - EENT Eyes: Present: PERRL ENT: hearing intact, clear oral mucosa - Neck Neck: Present: supple, normal ROM - Respiratory Respiratory effort: normal Respiratory: bilateral: CTA - Cardiovascular Heart rate: 68 Rhythm: regular Heart Sounds: Present: S1 & S2. Absent: rub, click - Extremities Extremities: no ischemia, pulses intact, pulses symmetrical, No edema Peripheral Pulses: within normal limits - Abdominal General gastrointestinal: Present: soft, non-tender, non-distended, normal bowel sounds Female genitourinary: Present: normal - Rectal Rectal Exam: deferred - Integumentary Integumentary: Present: clear, warm, dry - Musculoskeletal Musculoskeletal: gait normal, strength equal bilaterally - Psychiatric Psychiatric: appropriate mood/affect, intact judgment & insight - Neurologic Neurologic: CNII-XII intact, moves all extremities - Allied Health Allied health notes reviewed: nursing Plan Activity: no restrictions Diet: renal Follow up with: AYAAN QUAN MD [Primary Care Provider] - 3-5 Days
[2021-04-02] MEDS ORDERED: ACETAMINOPHEN 325 MG TAB PO PRN (20:09)
[2021-04-02] MEDS ORDERED: oxyCODONE /ACETAMINOPHEN 5-325MG TAB PO PRN (20:09)
[2021-04-02] MEDS ORDERED: ONDANSETRON 4 MG/2 ML INJ IV PRN (20:09)
[2021-04-02 20:44] VITALS: BP 184/92
[2021-04-02] MEDS ORDERED: HEPARIN 5,000 UNIT/1 ML VIAL SUB-Q SCH (22:00)
[2021-04-02] MEDS ORDERED: FAMOTIDINE 10 MG TAB PO SCH (22:00)
== END 2021-04-02 20:45 | disposition home or self-care (01) ==
LOC: ED 11:08 → 3A 14:51
PROVIDERS: ADMIT Internal Medicine; ATTEND Internal Medicine
DX: J96.01 Acute respiratory failure with hypoxia (principal); I12.0 Hypertensive chronic kidney disease with stage 5 chronic kidney disease or end stage renal disease; N18.6 End stage renal disease; E87.70 Fluid overload, unspecified; E11.9 Type 2 diabetes mellitus without complications; Z99.2 Dependence on renal dialysis; Z86.73 Personal history of transient ischemic attack (TIA), and cerebral infarction without residual deficits; Z79.899 Other long term (current) drug therapy; Z98.890 Other specified postprocedural states; Z79.4 Long term (current) use of insulin
CPT/HCPCS: 36415; 71046; 80053; 80074; 83880; 85025; 99284; G0257; G0378

== ENCOUNTER 2021-06-09 08:34 | Emergency (ER) | payer MEDICARE ==
--- NOTE | 2021-06-09 10:01 | Emergency Department Report ---
HPI - General Chief Complaint: Cardiac Arrest/CPR Time Seen by Provider: 06/09/21 08:58 - HPI HPI: 66-year-old female with history of ESRD on dialysis who missed her last few dialysis sessions brought in by EMS in cardiac arrest. The patient was last see n normal at approximately 7 AM. EMS was called out for patient found unresponsive. When they arrived the patient was unresponsive, pulseless, and with initial rhythm showing asystole. CPR was started and ACLS protocol were followed. The patient was given 3 doses of cardiac epi and 1 amp of bicarb. The patient is remained in asystole or PEA the entire time. Her initial fingerstick blood glucose was 169. Further details of the HPI are highly limited due to the patient's current clinical condition. ED Past Medical Hx - Past Medical History Hx Hypertension: Yes Hx CVA: Yes (90"s) Hx Diabetes: Yes Hx Renal Disease: Yes Additional medical history: on dialysis, ANEMIA - Surgical History Additional Surgical History: Hernia, Left arm AV fistula - Social History Smoking Status: Never Smoker Substance Use Type: None - Medications Home Medications: Home Medications Medication Instructions Recorded Confirmed Last Taken Type Furosemide 20 mg PO DAILY MDD 20 mg 10/22/17 07/03/18 07/02/18 19:00 History Gabapentin 100 mg PO BID MDD 400 mg 10/22/17 07/03/18 07/02/18 19:00 History Losartan 50 mg PO DAILY MDD 50 mg 10/22/17 07/03/18 07/02/18 19:00 History Omeprazole 40 mg PO DAILY MDD 40 10/22/17 07/03/18 07/02/18 19:00 History Humalog Michael Kwikpen 0 units SQ TIDAC #5 pen MDD 20 10/23/17 07/03/18 07/02/18 19:00 Rx units Januvia 100 mg PO DAILY #30 MDD 5 mg 10/23/17 07/03/18 07/02/18 19:00 Rx Levemir Flextouch 5 units SQ DAILY #1 MDD 30 units 10/23/17 07/03/18 07/02/18 19:00 Rx hydrALAZINE [Apresoline TAB] 25 mg PO TID #90 tablet 10/23/17 07/03/18 07/02/18 19:00 Rx HYDROcodone/APAP 5-325 [[place] 1 each PO Q6HR PRN #20 tablet 07/03/18 Unknown Rx 5-325 mg TAB] Mycophenolate 500 mg PO DAILY 07/03/18 07/03/18 07/02/18 19:00 History Penicillin V Potassium 500 mg PO TID 7 Days #21 tablet 07/15/18 Unknown Rx ED Review of Systems ROS: Stated complaint: CARDIAC ARREST Other details as noted in HPI Comment: Unobtainable due to pts medical conditions Physical Exam - Physical Exam Physical Exam: GENERAL: Elderly female. Unresponsive and obtunded. HEAD: Normocephalic. No obvious signs of trauma. ENT: Bleeding from the nares bilaterally. EYES: Pupils are fixed and dilated bilaterally. NECK: Trachea is midline. LUNGS: There are loud breath sounds heard on the right with [id number] ventilation whereas there are diminished or minimal breath sounds heard on the left. CARDIOVASCULAR: Pulseless. Chest compressions being performed. VASCULAR: Pulseless. ABDOMEN: Abdomen is distended but soft. SKIN: Skin is cool and dry. NEURO: Unresponsive MUSCULOSKELETAL: No obvious deformities. ED Medical Decision Making - Medical Decision Making 66-year-old female with history of ESRD on dialysis who supposedly missed her last few dialysis sessions brought in by EMS in cardiac arrest. Patient's initial rhythm showed asystole. Patient has been given 3 doses of cardiac epi as well as bicarb. CPR had been in progress for approximately 30 minutes when she arrived at our emergency department. Although an IV was established in route, it was lost upon arrival to emergency department. Despite several attempts to place IV by multiple nurses, we were unsuccessful. Therefore I placed a right tibial IO for further medication administration. ACLS protocol was followed and the patient was given multiple doses of cardiac epi, bicarb, calcium, glucose/insulin. Her rhythm showed PEA and at one point looked like possible coarse V. fib but this was very brief. Nonetheless she was given 300 mg of IV amiodarone push. Because of decreased breath sounds heard on the left side, I requested an 18-gauge Angiocath needle. However, I was told that we do not have an Angiocath needle available and the only needle available was a 16- gauge needle which I placed into the left second intercostal space at the midclavicular line without staley of air. Therefore it was removed and CPR was continued. Despite our resuscitative efforts, bedside ultrasound showed no cardiac activity and time of was called at 842 AM Critical care attestation.: If time is entered above; I have spent that time in minutes in the direct care of this critically ill patient, excluding procedure time. ED Disposition Clinical Impression: Cardiac arrest Disposition: 20 Is pt being admited?: No Referrals: PRIMARY CARE, [Primary Care Provider] - 3-5 Days
[2021-06-09] MEDS ORDERED: AMIODARONE 150 MG/3 ML INJ IV ONE (15:06)
[2021-06-09] MEDS ORDERED: CALCIUM CHLORIDE 1,000 MG/10 ML SYRINGE IV ONE (15:06)
[2021-06-09] MEDS ORDERED: EPINEPHrine 1 MG/10 ML SYRINGE ONE (15:06)
== END 2021-06-09 11:33 ==
LOC: ED 08:34
DX: I46.9 Cardiac arrest, cause unspecified (principal); I10 Essential (primary) hypertension; E11.8 Type 2 diabetes mellitus with unspecified complications
CPT/HCPCS: 36680; 82962; 92950; 99285; J0171; J0282; J3490